=== PATIENT | female | born 2000 | race Caucasian/White ===

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

== ENCOUNTER 2020-04-19 21:34 | Emergency (ER) | payer OTHER ==
[2020-04-19 21:39] VITALS: BP 111/72; PULSE 94; RESP 20; TEMP 98.8
--- NOTE | 2020-04-19 21:47 | ED ---
General Adult HPI - General Chief complaint: Fever Stated complaint: fever Time Seen by Provider: 04/19/20 21:41 Source: patient Mode of arrival: ambulatory Limitations: no limitations - History of Present Illness Initial comments: Dictation was produced using [employer] dictation software. please excuse any grammatical, word or spelling errors. This patient was cared for during a federal and state declared state of emergency secondary to Covid 19 Chief Complaint: 20-year-old female presents to the emergency department for a work note. History of Present Illness: 20-year-old female she missed work today because she was feeling ill. She went to the [employer] wrist they checked her temperature using infrared monitor and was found to be slightly elevated. She was told to come to the emergency department. Patient feels well. Earlier today she had a headache. She was not able to return back to work, she had a work note. Patient otherwise has no complaints. The ROS documented in this emergency department record has been reviewed and confirmed by me. Those systems with pertinent positive or negative responses have been documented in the HPI. All other systems are other negative and/or noncontributory. PHYSICAL EXAM: General Impression: Alert and oriented x3, not in acute distress HEENT: Normocephalic atraumatic, extra-ocular movements intact, pupils equal and reactive to light bilaterally, mucous membranes moist. Cardiovascular: Heart regular rate and rhythm Chest: Able to complete full sentences, no retractions, no tachypnea Abdomen: abdomen soft, non-tender, non-distended, no organomegaly Musculoskeletal: Pulses present and equal in all extremities, no peripheral edema Motor: no focal deficits noted Neurological: CN II-XII grossly intact, no focal motor or sensory deficits noted Skin: Intact with no visualized rashes Psych: Normal affect and mood ED course: 20-year-old female presents work note. She was at the [employer] rest and was told that she should come to the emergency department for low-grade temperatures. On arrival are within acceptable limits. Temperature today is 98.8. She has no complaints per she is well-appearing at bedside. Patient agreed to be tested for coronavirus. She is told that her results should be available in 1-2 days. Patient clear for discharge. She has no restrictions. She is urged to continue wearing her mask and to isolate if she develops worsening symptoms. - Related Data Previous Rx's Medication Instructions Recorded Cephalexin [Keflex] 500 mg PO Q6HR #28 cap 08/23/19 Clotrimazole/Betamethasone Dip 1 applic TOPICAL BID #45 gm 08/23/19 [Lotrisone Cream] Allergies Allergy/AdvReac Type Severity Reaction Status Date / Time No Known Allergies Allergy Verified 04/19/20 21:39 Review of Systems ROS Statement: Those systems with pertinent positive or pertinent negative responses have been documented in the HPI. ROS Other: All systems not noted in ROS Statement are negative. Past Medical History Past Medical History: No Reported History History of Any Multi-Drug Resistant Organisms: None Reported Past Surgical History: No Surgical Hx Reported Past Psychological History: ADD/ADHD, Anxiety Smoking Status: Current every day smoker, Vaper Past Alcohol Use History: None Reported Past Drug Use History: None Reported General Exam Limitations: no limitations Course Vital Signs 04/19/20 21:36 Temperature 98.8 F Pulse Rate 94 Respiratory 20 Rate Blood Pressure 111/72 O2 Sat by Pulse 99 Oximetry Disposition Clinical Impression: Wellness examination Disposition: HOME SELF-CARE Condition: Good Instructions (If sedation given, give patient instructions): Fever in Adults (ED) Is patient prescribed a controlled substance at d/c from ED?: No Referrals: None,Stated [Primary Care Provider] - 1-2 days Time of Disposition: 21:47
== END 2020-04-19 22:03 | disposition home or self-care (01) ==
LOC: EC 21:34
DX: Z00.00 Encounter for general adult medical examination without abnormal findings (principal); F17.290 Nicotine dependence, other tobacco product, uncomplicated; Z20.828 Contact with and (suspected) exposure to other viral communicable diseases
CPT/HCPCS: 99283; U0003

== ENCOUNTER 2020-05-21 10:34 | Emergency (ER) | payer OTHER ==
[2020-05-21 10:46] VITALS: BP 107/64; PULSE 81; RESP 18; TEMP 98
--- NOTE | 2020-05-21 10:54 | ED ---
ENT HPI - General Chief complaint: ENT Stated complaint: Sore Throat,ear pain Time Seen by Provider: 05/21/20 10:47 Source: patient, RN notes reviewed Mode of arrival: ambulatory Limitations: no limitations - History of Present Illness Initial comments: This a 20-year-old female presents emergency Department with chief complaint of sore throat, left ear pain. Patient states started last 24 hours no fevers or chills no nasal congestion no chest pain or shortness breath no headache or dizziness. Patient states that she feels her tonsils swollen. Patient denies any sick contacts. Patient offers no other associated complaints. - Related Data Previous Rx's Medication Instructions Recorded Cephalexin [Keflex] 500 mg PO Q6HR #28 cap 08/23/19 Clotrimazole/Betamethasone Dip 1 applic TOPICAL BID #45 gm 08/23/19 [Lotrisone Cream] Amoxicillin 875 mg PO Q12HR #20 tablet 05/21/20 Allergies Allergy/AdvReac Type Severity Reaction Status Date / Time No Known Allergies Allergy Verified 05/21/20 10:46 Review of Systems ROS Statement: Those systems with pertinent positive or pertinent negative responses have been documented in the HPI. ROS Other: All systems not noted in ROS Statement are negative. Past Medical History Past Medical History: No Reported History History of Any Multi-Drug Resistant Organisms: None Reported Past Surgical History: No Surgical Hx Reported Past Psychological History: ADD/ADHD, Anxiety Smoking Status: Current every day smoker, Vaper Past Alcohol Use History: None Reported Past Drug Use History: None Reported General Exam Limitations: no limitations General appearance: alert, in no apparent distress Head exam: Present: atraumatic, normocephalic, normal inspection Eye exam: Present: normal appearance, PERRL, EOMI. Absent: scleral icterus, conjunctival injection, periorbital swelling ENT exam: Present: mucous membranes moist. Absent: normal oropharynx (Erythematous left tonsil gallstones no exudates, swelling swallowing secretions well), TM's normal bilaterally (Mild erythema left) Neck exam: Present: normal inspection, full ROM, lymphadenopathy. Absent: tenderness, meningismus Respiratory exam: Present: normal lung sounds bilaterally. Absent: respiratory distress, wheezes, rales, rhonchi, stridor Cardiovascular Exam: Present: regular rate, normal rhythm, normal heart sounds. Absent: systolic murmur, diastolic murmur, rubs, gallop, clicks Neurological exam: Present: alert, oriented X3 Skin exam: Present: warm, dry, intact, normal color. Absent: rash Course Vital Signs 05/21/20 10:43 Temperature 98 F Pulse Rate 81 Respiratory 18 Rate Blood Pressure 107/64 O2 Sat by Pulse 97 Oximetry Medical Decision Making - Medical Decision Making Patient has a dentist left tonsil concerning for acute tonsillitis and mild erythema left TM will be treated with amoxicillin return parameters were discussed. Disposition Clinical Impression: Tonsillitis, Acute pharyngitis, Otalgia of left ear Disposition: HOME SELF-CARE Condition: Stable Instructions (If sedation given, give patient instructions): Earache (ED) Additional Instructions: Please return to the Emergency Department if symptoms worsen or any other concerns. Prescriptions: Amoxicillin 875 mg PO Q12HR #20 tablet Is patient prescribed a controlled substance at d/c from ED?: No Referrals: None,Stated [Primary Care Provider] - 1-2 days Time of Disposition: 10:54
== END 2020-05-21 11:14 | disposition home or self-care (01) ==
LOC: EC 10:34
DX: J03.90 Acute tonsillitis, unspecified (principal); H92.02 Otalgia, left ear; F17.200 Nicotine dependence, unspecified, uncomplicated
CPT/HCPCS: 99282

== ENCOUNTER 2020-06-06 19:49 | Emergency (ER) | payer OTHER ==
[2020-06-06 19:56] VITALS: BP 124/76; PULSE 85; RESP 18; TEMP 98.5
--- NOTE | 2020-06-06 20:18 | ED ---
General Adult HPI - General Chief complaint: ENT Stated complaint: Revisit - Throat Time Seen by Provider: 06/06/20 20:02 Source: patient, RN notes reviewed Mode of arrival: ambulatory Limitations: no limitations - History of Present Illness Initial comments: 20-year-old female presents to the emergency room for a chief complaint of sore throat. Patient states that over a week ago started and she was given antibiotics. States she took 2 days of antibiotics and symptoms resolved. However now patient is stating that today she started to have some irritation on the left side again. Patient states she did start retaking the antibiotics as she does have 8 days left. She denies fevers or chills. Denies trismus. Denies difficulty swallowing. Denies neck stiffness. Denies fevers. Denies cough or congestion.Patient has no other complaints at this time including shortness of breath, chest pain, abdominal pain, nausea or vomiting, headache, o r visual changes. - Related Data Previous Rx's Medication Instructions Recorded Cephalexin [Keflex] 500 mg PO Q6HR #28 cap 08/23/19 Clotrimazole/Betamethasone Dip 1 applic TOPICAL BID #45 gm 08/23/19 [Lotrisone Cream] Amoxicillin 875 mg PO Q12HR #20 tablet 05/21/20 Fluticasone Nasal [place] [Flonase 1 spray EA NOSTRIL DAILY 7 Days #1 06/06/20 Nasal [place]] bottle Loratadine [Claritin] 10 mg PO DAILY #20 tab 06/06/20 Allergies Allergy/AdvReac Type Severity Reaction Status Date / Time No Known Allergies Allergy Verified 06/06/20 19:55 Review of Systems ROS Statement: Those systems with pertinent positive or pertinent negative responses have been documented in the HPI. ROS Other: All systems not noted in ROS Statement are negative. Past Medical History Past Medical History: No Reported History History of Any Multi-Drug Resistant Organisms: None Reported Past Surgical History: No Surgical Hx Reported Past Psychological History: ADD/ADHD, Anxiety, PTSD Smoking Status: Current every day smoker, Vaper Past Alcohol Use History: None Reported Past Drug Use History: None Reported General Exam Limitations: no limitations General appearance: alert, in no apparent distress Head exam: Present: atraumatic, normocephalic, normal inspection Eye exam: Present: normal appearance, PERRL, EOMI. Absent: scleral icterus, conjunctival injection, periorbital swelling ENT exam: Present: normal exam, normal oropharynx (No tonsillar exudates noted bilaterally, uvula is midline, tonsillar pillars are symmetric.), mucous membranes moist, TM's normal bilaterally, normal external ear exam Neck exam: Present: normal inspection, full ROM. Absent: tenderness, meningismus, lymphadenopathy Respiratory exam: Present: normal lung sounds bilaterally. Absent: respiratory distress, wheezes, rales, rhonchi, stridor Cardiovascular Exam: Present: regular rate, normal rhythm, normal heart sounds. Absent: systolic murmur, diastolic murmur, rubs, gallop, clicks GI/Abdominal exam: Present: soft, normal bowel sounds. Absent: distended, tenderness, guarding, rebound, rigid Course Vital Signs 06/06/20 19:53 Temperature 98.5 F Pulse Rate 85 Respiratory 18 Rate Blood Pressure 124/76 O2 Sat by Pulse 99 Oximetry Medical Decision Making - Medical Decision Making I did recommend swabbing patient's throat to evaluate for strep and send cultures to the lab. However patient states she does not want this done. She does not feel like waiting. She prefers to go home and restart her antibiotics which she has an 8 day supply of. I did also prescribe Claritin and Flonase as I suspect this more likely to be related to postnasal drip. At this time patient will be discharged home to follow up with primary care. Vitals are stable. Patient requesting work note. Disposition Clinical Impression: Pharyngitis Disposition: HOME SELF-CARE Condition: Good Instructions (If sedation given, give patient instructions): Ear Foreign Body (ED) Additional Instructions: Continue to take her antibiotic as directed. Try Claritin and nasal spray as well. Follow up with your doctor in one to 2 days. Return to the emergency room for any worsening symptoms. Prescriptions: Loratadine [Claritin] 10 mg PO DAILY #20 tab Fluticasone Nasal [place] [Flonase Nasal [place]] 1 spray EA NOSTRIL DAILY 7 Days #1 bottle Is patient prescribed a controlled substance at d/c from ED?: No Referrals: Cielo Moore MD [REFERRING] - 1-2 days Time of Disposition: 20:18
== END 2020-06-06 20:37 | disposition home or self-care (01) ==
LOC: EC 19:49
DX: J02.9 Acute pharyngitis, unspecified (principal); F17.200 Nicotine dependence, unspecified, uncomplicated
CPT/HCPCS: 99282

== ENCOUNTER → 2020-10-08 | Outpatient (CLI) | payer OTHER ==
--- NOTE | 2020-10-08 15:21 | XR ---
EXAMINATION TYPE: XR KUB DATE OF EXAM: 10/08/2020 COMPARISON: None HISTORY: Abdomen pain TECHNIQUE: Abdomen is examined in the supine view. FINDINGS: Normal colonic bowel gas is present. Psoas margins are normal. Organomegaly is not evident. IMPRESSION: 1. Unremarkable abdomen
== END | disposition home or self-care (01) ==
LOC: RADXRMAIN 13:41
PROVIDERS: ATTEND Internal Medicine
DX: R10.84 Generalized abdominal pain (principal)
CPT/HCPCS: 74018

== ENCOUNTER 2024-06-20 06:57 | Emergency (ER) | payer OTHER ==
--- NOTE | 2024-06-20 07:25 | ED ---
ENT HPI - General Chief complaint: Dental/Oral Stated complaint: Tooth pain Time Seen by Provider: 06/20/24 07:09 Source: patient, RN notes reviewed Mode of arrival: ambulatory Limitations: no limitations - History of Present Illness Initial comments: This is a 24-year-old female who presents to the emergency department for dental pain. Reports pain associated with her wisdom teeth over the last week. This is associated with the wisdom teeth in the left upper jaw. Yesterday the pain became particularly bothersome. She is taking Tylenol without any relief. Denies any fevers or chills. She has noticed intermittent swelling over this area. States that she was supposed to have her wisdom teeth removed in 2021, but this ended up getting canceled and she has been struggling to find someone to take her insurance. MD complaint: tooth pain - Related Data Previous Rx's Medication Instructions Recorded Cephalexin [Keflex] 500 mg PO Q6HR #28 cap 08/23/19 Clotrimazole/Betamethasone Dip 1 applic TOPICAL BID #45 gm 08/23/19 [Lotrisone Cream] Amoxicillin 875 mg PO Q12HR #20 tablet 05/21/20 Fluticasone Nasal [place] [Flonase 1 spray EA NOSTRIL DAILY 7 Days #1 06/06/20 Nasal [place]] bottle Loratadine [Claritin] 10 mg PO DAILY #20 tab 06/06/20 Amoxic-Pot Clav 875-125Mg 1 tab PO Q12HR 10 Days #20 tab 06/20/24 [Augmentin 875-125] Ibuprofen [Motrin] 800 mg PO Q8H PRN #30 tab 06/20/24 Allergies Allergy/AdvReac Type Severity Reaction Status Date / Time No Known Allergies Allergy Verified 06/20/24 07:06 Review of Systems ROS Statement: Those systems with pertinent positive or pertinent negative responses have been documented in the HPI. ROS Other: All systems not noted in ROS Statement are negative. Past Medical History Past Medical History: No Reported History History of Any Multi-Drug Resistant Organisms: None Reported Past Surgical History: No Surgical Hx Reported Past Psychological History: ADD/ADHD, Anxiety, PTSD Smoking Status: Current every day smoker, Vaper Past Alcohol Use History: None Reported Past Drug Use History: Marijuana General Exam Limitations: no limitations General appearance: alert, in no apparent distress Head exam: Present: atraumatic, normocephalic, normal inspection ENT exam: Present: other (Mild fullness to the left side of her face with tenderness along the left upper jawline towards the wisdom teeth. Dental caries. No elevation of the tongue or swelling to the floor of the mouth.) Respiratory exam: Present: normal lung sounds bilaterally. Absent: respiratory distress, wheezes, rales, rhonchi, stridor Cardiovascular Exam: Present: regular rate, normal rhythm, normal heart sounds. Absent: systolic murmur, diastolic murmur, rubs, gallop, clicks Neurological exam: Present: alert, oriented X3, CN II-XII intact Psychiatric exam: Present: normal affect, normal mood Skin exam: Present: warm, dry, intact, normal color. Absent: rash Course Vital Signs 06/20/24 07:07 Temperature 98.1 F Pulse Rate 86 Respiratory 15 Rate Blood Pressure 107/72 O2 Sat by Pulse 99 Oximetry Medical Decision Making - Medical Decision Making This is a 24-year-old female who presents to the emergency department for dental pain. Was pt. sent in by a medical professional or institution? @ -No Did you speak to anyone other than the patient for history? @ -No Did you review nursing and triage notes? @ -Yes, and I agree, it is accurate with regards to the patient's symptoms. Were old charts reviewed? @ -No Differential Diagnosis? @ -Differential Dental Pain: Dental abscess, chipped tooth, dental carries, marie's angina, trigeminal neuralgia, this is not meant to be an all-inclusive list. EKG interpreted by me (3pts min.)? @ -Not obtained X-rays interpreted by me (1pt min.)? @ -Not obtained CT interpreted by me (1pt min.)? @ -Not obtained U/S interpreted by me (1pt. min.)? @ -Not obtained What testing was considered but not performed? (CT, X-rays, U/S, labs)? Why? @ -None What meds were considered but not given? Why? @ -None Did you discuss the management of the patient with other professionals? @ -No Did you reconcile home meds? @ -No Was smoking cessation discussed for >3mins.? @ -I discussed smoking cessation for greater than 3 minutes. The risk of smoking were discussed with the patient including but not limited to risks of cancer, stroke, coronary artery disease and COPD. Also discussed with patient were multiple methods of quitting smoking. Lastly we discussed the financial cost of smoking. Was critical care preformed (if so, how long)? @ -No Were there social determinants of health that impacted care today? How? (Homelessness, low income, unemployed, alcoholism, drug addiction, transportation, low edu. Level, literacy, decrease access to med. care, snf, rehab)? @ -No Was there de-escalation of care discussed even if they declined? (Discuss DNR or withdrawal of care, Hospice)? @ -No What co-morbidities impacted this encounter? (DM, HTN, Smoking, COPD, CAD, Cancer, CVA, Hep., AIDS, mental health diagnosis, sleep apnea, morbid obesity)? @ -Smoking Was patient admitted / discharged? @ -Discharged. Physical examination consistent with developing dental abscess. Pain was managed in the emergency department. Prescription for Augmentin and ibuprofen provided. Advised taking this with Tylenol and using [id number] anesthetics such as Orajel. She was given a list of dental providers who accept her insurance as well. Advised she contact them for definitive management. Patient discharged home in stable condition. Case discussed with ED attending Dr. Hamm. Return precautions reviewed in depth, the patient is instructed to return to the emergency department with any new, worsening, or concerning symptoms. Patient verbalized understanding. Undiagnosed new problem with uncertain prognosis? @ -None Drug Therapy requiring intensive monitoring for toxicity (Heparin, Nitro, Insulin, Cardizem)? @ -None Were any procedures done? @ -None Diagnosis/symptom? @ -Dental infection Acute, or Chronic, or Acute on Chronic? @ -Acute Uncomplicated (without systemic symptoms) or Complicated (systemic symptoms)? @ -Uncomplicated Side effects of treatment? @ -None Exacerbation, Progression, or Severe Exacerbation] @ -Not applicable Poses a threat to life or bodily function? @ -No Disposition Clinical Impression: Dental infection, Nicotine dependence Disposition: HOME SELF-CARE Instructions (If sedation given, give patient instructions): Dental Abscess (ED), Toothache (ED) Additional Instructions: Return to the emergency department with any new, worsening, or concerning symptoms. Take the antibiotic as prescribed for 10 days. Alternate with ibuprofen and Tylenol as needed for pain relief. You can also use [id number] Orajel or other topical anesthetics. Follow-up with a dentist for definitive management. Prescriptions: Amoxic-Pot Clav 875-125Mg [Augmentin 875-125] 1 tab PO Q12HR 10 Days #20 tab Ibuprofen [Motrin] 800 mg PO Q8H PRN #30 tab PRN Reason: Pain Is patient prescribed a controlled substance at d/c from ED?: No Referrals: Jimmy Almonte MD [Primary Care Provider] - 1-2 days Time of Disposition: 07:28
[2024-06-20] MEDS: HYDROcodone/APAP 7.5-325MG 1 EACH TAB PO ONE (07:36)
[2024-06-20] MEDS: DEXAMETHASONE SOD PHOSPHATE 10 MG/ML 1 ML VIAL IM STA (07:37)
[2024-06-20] MEDS: ACET/COD 300 MG/30 MG STARTER PACK 6 TAB BTL PO STA (07:37)
[2024-06-20] MEDS: KETOROLAC 15 MG/ML 1 ML VIAL IM STA (07:37)
[2024-06-20 07:49] VITALS: BP 110/81; PULSE 82; RESP 16; TEMP 98
== END 2024-06-20 08:18 | disposition home or self-care (01) ==
LOC: EC 06:57
CPT/HCPCS: 96372; 99283

== ENCOUNTER 2024-08-08 23:55 | Emergency (ER) | payer OTHER ==
[2024-08-08 23:59] VITALS: RESP 18
--- NOTE | 2024-08-09 00:36 | ED ---
ENT HPI - General Chief complaint: Dental/Oral Stated complaint: Mouth Pain Time Seen by Provider: 08/09/24 00:02 Source: patient Mode of arrival: ambulatory - History of Present Illness Initial comments: 24-year-old female presenting with chief complaint of dental pain. Patient states that the dental pain is ongoing for the last 3 days. She was taking Motrin and Tylenol which was helping the pain but now tonight after taking her Motrin and Tylenol this has not alleviated her pain and she is unable to fall asleep. No swelling. Patient did have an appointment to have her wisdom teeth removed today which got canceled. She is aware that she needs a root canal as well. No fevers. No difficulty breathing or swallowing. No trismus. No fevers. States that pain is shooting from her tooth and into her ear throat and head. - Related Data Previous Rx's Medication Instructions Recorded Cephalexin [Keflex] 500 mg PO Q6HR #28 cap 08/23/19 Clotrimazole/Betamethasone Dip 1 applic TOPICAL BID #45 gm 08/23/19 [Lotrisone Cream] Amoxicillin 875 mg PO Q12HR #20 tablet 05/21/20 Fluticasone Nasal [place] [Flonase 1 spray EA NOSTRIL DAILY 7 Days #1 06/06/20 Nasal [place]] bottle Loratadine [Claritin] 10 mg PO DAILY #20 tab 06/06/20 Amoxic-Pot Clav 875-125Mg 1 tab PO Q12HR 10 Days #20 tab 06/20/24 [Augmentin 875-125] Ibuprofen [Motrin] 800 mg PO Q8H PRN #30 tab 06/20/24 Amoxic-Pot Clav 875-125Mg 1 tab PO Q12HR 7 Days #14 tab 08/09/24 [Augmentin 875-125] Allergies Allergy/AdvReac Type Severity Reaction Status Date / Time No Known Allergies Allergy Verified 08/08/24 23:59 Review of Systems ROS Statement: Those systems with pertinent positive or pertinent negative responses have been documented in the HPI. ROS Other: All systems not noted in ROS Statement are negative. Past Medical History Past Medical History: No Reported History History of Any Multi-Drug Resistant Organisms: None Reported Past Surgical History: No Surgical Hx Reported Past Psychological History: ADD/ADHD, Anxiety, PTSD Smoking Status: Current every day smoker, Vaper Past Alcohol Use History: Occasional Past Drug Use History: Marijuana General Exam General appearance: alert, in no apparent distress Head exam: Present: atraumatic, normocephalic Eye exam: Present: normal appearance Expanded Mouth exam: Present: normal external inspection, tongue normal. Absent: drooling, trismus, muffled voice Teeth exam: Present: dental caries, dental tenderness # Throat exam: normal inspection Neck exam: Present: normal inspection. Absent: meningismus Respiratory exam: Absent: respiratory distress Cardiovascular Exam: Present: regular rate Neurological exam: Present: alert, oriented X3 Psychiatric exam: Present: normal affect, normal mood Skin exam: Present: warm, dry Course Vital Signs 08/08/24 23:57 Temperature 97.7 F Pulse Rate 68 Respiratory 18 Rate Blood Pressure 120/83 O2 Sat by Pulse 100 Oximetry Medical Decision Making - Medical Decision Making Was pt. sent in by a medical professional or institution (, PA, BIOMEDICAL ANALYTICAL SCIENTIST, urgent care, hospital, or longterm...) When possible be specific @ -No Did you speak to anyone other than the patient for history (EMS, parent, family, police, friend...)? What history was obtained from this source @ -No Did you review nursing and triage notes (agree or disagree)? Why? @ -I reviewed and agree with nursing and triage notes Were old charts reviewed (outside hosp., previous admission, EMS record, old EKG, old radiological studies, urgent care reports/EKG's, longterm records)? Report findings @ -No old charts were reviewed Differential Diagnosis (chest pain, altered mental status, abdominal pain women, abdominal pain men, vaginal bleeding, weakness, fever, dyspnea, syncope, headache, dizziness, GI bleed, back pain, seizure, CVA, palpatations, mental health, musculoskeletal)? @ -Differential includes toothache, dental abscess, Charles's angina, this is not an all-inclusive list EKG interpreted by me (3pts min.). @ -As above X-rays interpreted by me (1pt min.). @ -None done CT interpreted by me (1pt min.). @ -None done U/S interpreted by me (1pt. min.). @ -None done What testing was considered but not performed or refused? (CT, X-rays, U/S, labs)? Why? @ -None What meds were considered but not given or refused? Why? @ -None Did you discuss the management of the patient with other professionals (denisha brown i.e. , PA, BIOMEDICAL ANALYTICAL SCIENTIST, lab, RT, psych nurse, social work msw, standpipe tender, teacher, senior commercial loan officer, pillowcase cutter)? Give summary @ -No Was smoking cessation discussed for >3mins.? @ -No Was critical care preformed (if so, how long)? @ -No Were there social determinants of health that impacted care today? How? (Homelessness, low income, unemployed, alcoholism, drug addiction, transportation, low edu. Level, literacy, decrease access to med. care, group home, rehab)? @ -No Was there de-escalation of care discussed even if they declined (Discuss DNR or withdrawal of care, Hospice)? DNR status @ -No What co-morbidities impacted this encounter? (DM, HTN, Smoking, COPD, CAD, Cancer, CVA, ARF, Chemo, Hep., AIDS, mental health diagnosis, sleep apnea, morbid obesity)? @ -None Was patient admitted / discharged? Hospital course, mention meds given and route, prescriptions, significant lab abnormalities, going to OR and other pertinent info. @ -24-year-old female presenting with chief complaint of dental pain. She has known dental caries. She was also supposed to have her wisdom teeth removed earlier today but the appointment was canceled by the office. On exam there are multiple dental caries and dental tenderness is noted. Patient will be treated with pain medication and antibiotics. Follow-up with dentist. Follow-up with PCP. Report back to ER with any new or worsening symptoms. Discussed return parameters and answered all questions. Patient conveyed verbal understanding and agreed to the plan. I discussed this case in detail with my attending Dr. Cali Undiagnosed new problem with uncertain prognosis? @ -No Drug Therapy requiring intensive monitoring for toxicity (Heparin, Nitro, Insulin, Cardizem)? @ -No Were any procedures done? @ -No Diagnosis/symptom? @ -Toothache Acute, or Chronic, or Acute on Chronic? @ -Acute Uncomplicated (without systemic symptoms) or Complicated (systemic symptoms)? @ -Uncomplicated Side effects of treatment? @ -No Exacerbation, Progression, or Severe Exacerbation? @ -No Poses a threat to life or bodily function? How? (Chest pain, [place], [place], pneumonia, PE, COPD, DKA, ARF, appy, cholecystitis, CVA, Diverticulitis, Homicidal, Luna icidal, threat to staff... and all critical care pts) @ -No Disposition Clinical Impression: Toothache Disposition: HOME SELF-CARE Condition: Good Instructions (If sedation given, give patient instructions): Toothache (ED) Additional Instructions: Please follow [facility] with [facility] [place] [address]. Phone number for new patients or [phone] for existing patients. Prescriptions: Amoxic-Pot Clav 875-125Mg [Augmentin 875-125] 1 tab PO Q12HR 7 Days #14 tab Is patient prescribed a controlled substance at d/c from ED?: No Referrals: Jimmy Almonte MD [Primary Care Provider] - 1-2 days Time of Disposition: 00:38
[2024-08-09] MEDS: HYDROcodone/APAP 7.5-325MG 1 EACH TAB PO ONE (01:00)
[2024-08-09] MEDS: traMADol 50 MG STARTER PACK 3 TAB BTL PO STA (01:00)
[2024-08-09] MEDS: KETOROLAC 15 MG/ML 1 ML VIAL IM STA (01:01)
[2024-08-09 01:11] VITALS: BP 116/78; PULSE 71; TEMP 97.8
== END 2024-08-09 01:10 | disposition home or self-care (01) ==
LOC: EC 23:55
DX: K02.9 Dental caries, unspecified (principal); F17.290 Nicotine dependence, other tobacco product, uncomplicated
CPT/HCPCS: 99283; 96372; J1885

== ENCOUNTER 2024-08-11 00:42 | Emergency (ER) | payer OTHER ==
[2024-08-11 00:46] VITALS: RESP 18
--- NOTE | 2024-08-11 01:08 | ED ---
ENT HPI - General Chief complaint: Dental/Oral Stated complaint: Dental pain Time Seen by Provider: 08/11/24 01:06 Source: patient, RN notes reviewed Mode of arrival: ambulatory Limitations: no limitations - History of Present Illness Initial comments: 24-year-old female presenting to the ER chief complaint of dental pain. Patient states she was scheduled for wisdom teeth extraction and root canal surgery but reports it was canceled due to insurance issues. Patient has been dealing with left lower sided dental pain that radiates to the jaw and the left ear. Denies lip or tongue swelling, trismus, difficulty swallowing or breathing. Patient was seen 3 days ago at the ER for same symptoms and was prescribed an antibiotic but reports she has not picked it up yet. - Related Data Previous Rx's Medication Instructions Recorded Cephalexin [Keflex] 500 mg PO Q6HR #28 cap 08/23/19 Clotrimazole/Betamethasone Dip 1 applic TOPICAL BID #45 gm 08/23/19 [Lotrisone Cream] Amoxicillin 875 mg PO Q12HR #20 tablet 05/21/20 Fluticasone Nasal [place] [Flonase 1 spray EA NOSTRIL DAILY 7 Days #1 06/06/20 Nasal [place]] bottle Loratadine [Claritin] 10 mg PO DAILY #20 tab 06/06/20 Amoxic-Pot Clav 875-125Mg 1 tab PO Q12HR 10 Days #20 tab 06/20/24 [Augmentin 875-125] Ibuprofen [Motrin] 800 mg PO Q8H PRN #30 tab 06/20/24 Amoxic-Pot Clav 875-125Mg 1 tab PO Q12HR 7 Days #14 tab 08/09/24 [Augmentin 875-125] Ketorolac [Toradol] 10 mg PO Q8HR #15 tab 08/11/24 Allergies Allergy/AdvReac Type Severity Reaction Status Date / Time No Known Allergies Allergy Verified 08/11/24 00:46 Review of Systems ROS Statement: Those systems with pertinent positive or pertinent negative responses have been documented in the HPI. ROS Other: All systems not noted in ROS Statement are negative. Past Medical History Past Medical History: No Reported History History of Any Multi-Drug Resistant Organisms: None Reported Past Surgical History: No Surgical Hx Reported Past Psychological History: ADD/ADHD, Anxiety, PTSD Smoking Status: Current every day smoker, Vaper Past Alcohol Use History: Occasional Past Drug Use History: Marijuana General Exam Limitations: no limitations General appearance: alert, in no apparent distress Head exam: Present: atraumatic, normocephalic, normal inspection Eye exam: Present: normal appearance, PERRL, EOMI. Absent: scleral icterus, conjunctival injection, periorbital swelling ENT exam: Present: normal exam, mucous membranes moist, other (Diffuse dental caries throughout oral cavity, no fluctuant masses, erythema, or drainage) Neck exam: Present: normal inspection. Absent: tenderness, meningismus, lymp hadenopathy Neurological exam: Present: alert, oriented X3 Psychiatric exam: Present: normal affect, normal mood Skin exam: Present: warm, dry, intact, normal color. Absent: rash Course Vital Signs 08/11/24 08/11/24 00:45 02:00 Temperature 98.3 F 97.9 F Pulse Rate 76 79 Respiratory 18 18 Rate Blood Pressure 123/81 125/84 O2 Sat by Pulse 99 97 Oximetry Medical Decision Making - Medical Decision Making Was pt. sent in by a medical professional or institution (, PA, CLINICAL NURSE MANAGER, urgent care, hospital, or [place] health care facility...) When possible be specific @ -No Did you speak to anyone other than the patient for history (EMS, parent, family, police, friend...)? What history was obtained from this source @ -No Did you review nursing and triage notes (agree or disagree)? Why? @ -I reviewed and agree with nursing and triage notes Were old charts reviewed (outside hosp., previous admission, EMS record, old EKG, old radiological studies, urgent care reports/EKG's, [place] health [facility] facility records)? Report findings @ -No old charts were reviewed Differential Diagnosis (chest pain, altered mental status, abdominal pain women, abdominal pain men, vaginal bleeding, weakness, fever, dyspnea, syncope, headache, dizziness, GI bleed, back pain, seizure, CVA, palpatations, mental health, musculoskeletal)? @ -Toothache, dental abscess, Charles's angina, dental infection, dental caries EKG interpreted by me (3pts min.). @ -None X-rays interpreted by me (1pt min.). @ -None done CT interpreted by me (1pt min.). @ -None done U/S interpreted by me (1pt. min.). @ -None done What testing was considered but not performed or refused? (CT, X-rays, U/S, labs)? Why? @ -None What meds were considered but not given or refused? Why? @ -None Did you discuss the management of the patient with other professionals (professionals i.e. , PA, CLINICAL NURSE MANAGER, lab, RT, psych nurse, geriatric social worker, corporation lawyer, teacher, customs and immigration officer, family caseworker)? Give summary @ -No Was smoking cessation discussed for >3mins.? @ -No Was critical care preformed (if so, how long)? @ -No Were there social determinants of health that impacted care today? How? (Homelessness, low income, unemployed, alcoholism, drug addiction, transportation, low edu. Level, literacy, decrease access to med. care, [facility], rehab)? @ -No Was there de-escalation of care discussed even if they declined (Discuss DNR or withdrawal of care, Hospice)? DNR status @ -No What co-morbidities impacted this encounter? (DM, HTN, Smoking, COPD, CAD, Cancer, CVA, ARF, Chemo, Hep., AIDS, mental health diagnosis, sleep apnea, morbid obesity)? @ -None Was patient admitted / discharged? Hospital course, mention meds given and route, prescriptions, significant lab abnormalities, going to OR and other pertinent info. @ -Discharge. This is a 24-year-old female presented to the ER chief complaint of dental pain. Patient was seen for this 3 days ago in the ER where she was prescribed Augmentin however has not yet picked up prescription. No red flag symptoms such as lip swelling, tongue swelling, or difficulty breathing or swallowing. Vital signs within acceptable limits. Upon examination, there is diffuse dental caries with no fluctuant masses or sign of abscess. Patient was provided with analgesics. Discussed that patient must pickling operator prescription for Augmentin and follow-up with dentist. Return precautions discussed as well as supportive care. Patient conveys understanding and is agreeable to plan. Case was discussed with the ED attending Dr. Tabor. Patient discharged in stable condition. Undiagnosed new problem with uncertain prognosis? @ -No Drug Therapy requiring intensive monitoring for toxicity (Heparin, Nitro, Insulin, Cardizem)? @ -No Were any procedures done? @ -No Diagnosis/symptom? @ -Dental infection Acute, or Chronic, or Acute on Chronic? @ -Acute Uncomplicated (without systemic symptoms) or Complicated (systemic symptoms)? @ -Uncomplicated Side effects of treatment? @ -No Exacerbation, Progression, or Severe Exacerbation? @ -No Poses a threat to life or bodily function? How? (Chest pain, [place], [place], pneumonia, PE, COPD, DKA, ARF, appy, cholecystitis, CVA, Diverticulitis, Homicidal, Suicidal, threat to staff... and all critical care pts) @ -No Disposition Clinical Impression: Dental infection Disposition: HOME SELF-CARE Condition: Stable Instructions (If sedation given, give patient instructions): Toothache (ED) Additional Instructions: Please take Augmentin as prescribed. Take Toradol every 8 hours as needed for pain. Apply cold compresses to left side of face. Drink plenty of ice water to reduce pain and swelling. Follow-up with dentist as soon as possible. Please return to the Emergency Department if symptoms worsen or any other concerns. Prescriptions: Ketorolac [Toradol] 10 mg PO Q8HR #15 tab Is patient prescribed a controlled substance at d/c from ED?: No Referrals: Jimmy Almonte MD [Primary Care Provider] - 1-2 days Time of Disposition: 01:41
[2024-08-11] MEDS: KETOROLAC 15 MG/ML 1 ML VIAL IM STA (01:23)
[2024-08-11 02:11] VITALS: BP 125/84; PULSE 79; TEMP 97.9
== END 2024-08-11 02:00 | disposition home or self-care (01) ==
LOC: EC 00:42
DX: K04.7 Periapical abscess without sinus (principal); F17.200 Nicotine dependence, unspecified, uncomplicated
CPT/HCPCS: 99282; 96372; J1885

== ENCOUNTER 2024-09-01 00:34 | Emergency (ER) | payer OTHER ==
[2024-09-01 00:39] VITALS: RESP 18; TEMP 97.4
--- NOTE | 2024-09-01 01:45 | ED ---
ENT HPI - General Chief complaint: Dental/Oral Stated complaint: Dental pain Time Seen by Provider: 09/01/24 00:53 Source: patient Mode of arrival: ambulatory - History of Present Illness Initial comments: 24-year-old female presenting with chief complaint of dental pain. Patient is having pain to the right upper incisor. Patient has been seen here on multiple occasions recently for dental pain. States that she has had difficulty getting in with her dentist due to her insurance. She is having no swelling. She was taking old antibiotics and Tylenol 3 at home which did not help. No difficulty breathing or swallowing. No fevers or chills. - Related Data Previous Rx's Medication Instructions Recorded Cephalexin [Keflex] 500 mg PO Q6HR #28 cap 08/23/19 Clotrimazole/Betamethasone Dip 1 applic TOPICAL BID #45 gm 08/23/19 [Lotrisone Cream] Amoxicillin 875 mg PO Q12HR #20 tablet 05/21/20 Fluticasone Nasal [place] [Flonase 1 spray EA NOSTRIL DAILY 7 Days #1 06/06/20 Nasal [place]] bottle Loratadine [Claritin] 10 mg PO DAILY #20 tab 06/06/20 Amoxic-Pot Clav 875-125Mg 1 tab PO Q12HR 10 Days #20 tab 06/20/24 [Augmentin 875-125] Ibuprofen [Motrin] 800 mg PO Q8H PRN #30 tab 06/20/24 Amoxic-Pot Clav 875-125Mg 1 tab PO Q12HR 7 Days #14 tab 08/09/24 [Augmentin 875-125] Ketorolac [Toradol] 10 mg PO Q8HR #15 tab 08/11/24 Allergies Allergy/AdvReac Type Severity Reaction Status Date / Time No Known Allergies Allergy Verified 09/01/24 00:39 Review of Systems ROS Statement: Those systems with pertinent positive or pertinent negative responses have been documented in the HPI. ROS Other: All systems not noted in ROS Statement are negative. Past Medical History Past Medical History: No Reported History History of Any Multi-Drug Resistant Organisms: None Reported Past Surgical History: No Surgical Hx Reported Past Psychological History: ADD/ADHD, Anxiety, PTSD Smoking Status: Current every day smoker, Vaper Past Alcohol Use History: Occasional Past Drug Use History: Marijuana General Exam General appearance: alert, in no apparent distress Head exam: Present: atraumatic, normocephalic Eye exam: Present: normal appearance, EOMI Expanded Mouth exam: Present: normal external inspection, tongue normal. Absent: drooling, trismus, muffled voice Teeth exam: Present: dental caries, dental tenderness # Throat exam: normal inspection Neck exam: Present: normal inspection. Absent: meningismus Respiratory exam: Absent: respiratory distress Cardiovascular Exam: Present: regular rate Neurological exam: Present: alert, oriented X3 Psychiatric exam: Present: normal affect, normal mood Skin exam: Present: warm, dry, normal color Course Vital Signs 09/01/24 09/01/24 00:36 02:07 Temperature 97.4 F L Pulse Rate 94 90 Respiratory 18 18 Rate Blood Pressure 125/80 129/80 O2 Sat by Pulse 98 100 Oximetry Medical Decision Making - Medical Decision Making Was pt. sent in by a medical professional or institution (MED Lamb, BEATER WORKER HELPER, urgent care, hospital, or prison...) When possible be specific @ -No Did you speak to anyone other than the patient for history (EMS, parent, family, police, friend...)? What history was obtained from this source @ -No Did you review nursing and triage notes (agree or disagree)? Why? @ -I reviewed and agree with nursing and triage notes Were old charts reviewed (outside hosp., previous admission, EMS record, old E KG, old radiological studies, urgent care reports/EKG's, prison records)? Report findings @ -No old charts were reviewed Differential Diagnosis (chest pain, altered mental status, abdominal pain women, abdominal pain men, vaginal bleeding, weakness, fever, dyspnea, syncope, headache, dizziness, GI bleed, back pain, seizure, CVA, palpatations, mental health, musculoskeletal)? @ -Differential includes toothache, dental abscess, Charles's angina, this is not an all-inclusive list EKG interpreted by me (3pts min.). @ -As above X-rays interpreted by me (1pt min.). @ -None done CT interpreted by me (1pt min.). @ -None done U/S interpreted by me (1pt. min.). @ -None done What testing was considered but not performed or refused? (CT, X-rays, U/S, labs)? Why? @ -None What meds were considered but not given or refused? Why? @ -None Did you discuss the management of the patient with other professionals (professionals i.e. Dr., PA, BEATER WORKER HELPER, lab, RT, psych nurse, social worker delinquency prevention, hotel staff member, te acher, ammunition officer, caser shoe parts)? Give summary @ -No Was smoking cessation discussed for >3mins.? @ -No Was critical care preformed (if so, how long)? @ -No Were there social determinants of health that impacted care today? How? (Homelessness, low income, unemployed, alcoholism, drug addiction, transportation, low edu. Level, literacy, decrease access to med. care, nursing home, rehab)? @ -No Was there de-escalation of care discussed even if they declined (Discuss DNR or withdrawal of care, Hospice)? DNR status @ -No What co-morbidities impacted this encounter? (DM, HTN, Smoking, COPD, CAD, C ancer, CVA, ARF, Chemo, Hep., AIDS, mental health diagnosis, sleep apnea, morbid obesity)? @ -None Was patient admitted / discharged? Hospital course, mention meds given and route, prescriptions, significant lab abnormalities, going to OR and other pertinent info. @ -24-year-old female presenting with chief complaint of dental pain. Patient states that she knows that she needs dental work done but is having issues with her insurance. No red flag symptoms. No evidence of infection. Patient is provided with pain medication and instructed to follow-up with her dentist. I stressed to the patient that we can help manage her symptoms but any real resolution to her recurrent dental pain requires evaluation by her dentist. Discharged. Follow-up with dentist. Report back to ER with any new or worsening symptoms. Discussed return parameters and answered all questions. Patient conveyed verbal understanding and agreed to the plan. I discussed this case in detail with my attending Dr. Manjarrez Undiagnosed new problem with uncertain prognosis? @ -No Drug Therapy requiring intensive monitoring for toxicity (Heparin, Nitro, Insulin, Cardizem)? @ -No Were any procedures done? @ -No Diagnosis/symptom? @ -Dental pain Acute, or Chronic, or Acute on Chronic? @ -Acute Uncomplicated (without systemic symptoms) or Complicated (systemic symptoms)? @ -Uncomplicated Side effects of treatment? @ -No Exacerbation, Progression, or Severe Exacerbation? @ -No Poses a threat to life or bodily function? How? (Chest pain, [place], [place], pneumonia, PE, COPD, DKA, ARF, appy, cholecystitis, CVA, Diverticulitis, Homicidal, Suicidal, threat to staff... and all critical care pts) @ -No Disposition Clinical Impression: Toothache Disposition: HOME SELF-CARE Condition: Good Instructions (If sedation given, give patient instructions): Toothache (ED) Additional Instructions: Follow-up with your dentist. Report back to ER with any new or worsening symptoms Is patient prescribed a controlled substance at d/c from ED?: No Referrals: Jimmy Almonte MD [Primary Care Provider] - 1-2 days Time of Disposition: 01:44
[2024-09-01] MEDS: KETOROLAC 15 MG/ML 1 ML VIAL IM STA (02:02)
[2024-09-01] MEDS: traMADol 50 MG STARTER PACK 3 TAB BTL PO STA (02:04)
[2024-09-01 02:08] VITALS: BP 129/80; PULSE 90
== END 2024-09-01 02:11 | disposition home or self-care (01) ==
LOC: EC 00:34
DX: K08.89 Other specified disorders of teeth and supporting structures (principal); F17.290 Nicotine dependence, other tobacco product, uncomplicated
CPT/HCPCS: 99282; 96372; J1885

== ENCOUNTER 2024-09-20 17:40 | Emergency (ER) | payer OTHER ==
[2024-09-20 19:35] VITALS: BP 108/70; PULSE 98; RESP 18; TEMP 97.9
--- NOTE | 2024-09-20 19:35 | ED ---
General Adult HPI - General Chief complaint: Dental/Oral Stated complaint: oral Time Seen by Provider: 09/20/24 18:17 Source: patient, RN notes reviewed Mode of arrival: ambulatory Limitations: no limitations - History of Present Illness Initial comments: 24-year-old female presents to the emergency department for evaluation of left lower dentition pain. Patient states that she needs to have a root canal done but was unable to do so because of her insurance. She states that she has an appointment at the end of the month for her dentist again. She states that she was eating when she bit down on the left side and started experiencing some pain. She denies any fever, chills, sore throat, trismus. Denies difficulty swallowing. - Related Data Home Medications Medication Instructions Recorded Confirmed Amoxic-Pot Clav 875-125Mg 1 tab PO DAILY 09/20/24 09/20/24 [Augmentin 875-125] Allergies Allergy/AdvReac Type Severity Reaction Status Date / Time No Known Allergies Allergy Verified 09/20/24 17:55 Review of Systems ROS Statement: Those systems with pertinent positive or pertinent negative responses have been documented in the HPI. ROS Other: All systems not noted in ROS Statement are negative. Past Medical History Past Medical History: No Reported History History of Any Multi-Drug Resistant Organisms: None Reported Past Surgical History: No Surgical Hx Reported Past Psychological History: ADD/ADHD, Anxiety, PTSD Smoking Status: Current every day smoker, Vaper Past Alcohol Use History: Occasional Past Drug Use History: Marijuana General Exam Limitations: no limitations General appearance: alert, in no apparent distress Head exam: Present: atraumatic, normocephalic, normal inspection Eye exam: Present: normal appearance, PERRL, EOMI. Absent: scleral icterus, conjunctival injection, periorbital swelling ENT exam: Present: normal exam, normal oropharynx, mucous membranes moist, other (Multiple dental caries throughout upper and lower dentition, no visible drainable dental abscess) Neck exam: Present: normal inspection. Absent: tenderness, meningismus, lymphadenopathy Respiratory exam: Present: normal lung sounds bilaterally. Absent: respiratory distress, wheezes, rales, rhonchi, stridor Cardiovascular Exam: Present: regular rate, normal rhythm, normal heart sounds. Absent: systolic murmur, diastolic murmur, rubs, gallop, clicks Neurological exam: Present: alert, oriented X3 Psychiatric exam: Present: normal affect, normal mood Skin exam: Present: warm, dry, intact, normal color. Absent: rash Course Vital Signs 09/20/24 09/20/24 17:53 19:23 Temperature 97.9 F Pulse Rate 97 98 Respiratory 16 18 Rate Blood Pressure 103/67 108/70 O2 Sat by Pulse 95 98 Oximetry Medical Decision Making - Medical Decision Making Was pt. sent in by a medical professional or institution ([facility], DIRECTOR PROJECT MANAGEMENT, urgent care, hospital, or jail...) When possible be specific @ -No Did you speak to anyone other than the patient for history (EMS, parent, family, police, friend...)? What history was obtained from this source @ -No Did you review nursing and triage notes (agree or disagree)? Why? @ -I reviewed and agree with nursing and triage notes Were old charts reviewed (outside hosp., previous admission, EMS record, old EKG, old radiological studies, urgent care reports/EKG's, jail records)? Report findings @ -No old charts were reviewed Differential Diagnosis (chest pain, altered mental status, abdominal pain women, abdominal pain men, vaginal bleeding, weakness, fever, dyspnea, syncope, headache, dizziness, GI bleed, back pain, seizure, CVA, palpatations, mental health, musculoskeletal)? @ -Dental infection, dental abscess, dental appliance issue, parotiditis, strep throat, this list is not all inclusive EKG interpreted by me (3pts min.). @ -None X-rays interpreted by me (1pt min.). @ -None done CT interpreted by me (1pt min.). @ -None done U/S interpreted by me (1pt. min.). @ -None done What testing was considered but not performed or refused? (CT, X-rays, U/S, labs)? Why? @ -None What meds were considered but not given or refused? Why? @ -None Did you discuss the management of the patient with other professionals (professionals i.e. [facility], DIRECTOR PROJECT MANAGEMENT, lab, RT, psych nurse, licensed clinical social worker, group leader, teacher, national insurance officer, case management director)? Give summary @ -No Was smoking cessation discussed for >3mins.? @ -No Was critical care preformed (if so, how long)? @ -No Were there social determinants of health that impacted care today? How? (Homelessness, low income, unemployed, alcoholism, drug addiction, transportation, low edu. Level, literacy, decrease access to med. care, skilled nursing, rehab)? @ -No Was there de-escalation of care discussed even if they declined (Discuss DNR or withdrawal of care, Hospice)? DNR status @ -No What co-morbidities impacted this encounter? (DM, HTN, Smoking, COPD, CAD, Cancer, CVA, ARF, Chemo, Hep., AIDS, mental health diagnosis, sleep apnea, morbid obesity)? @ -None Was patient admitted / discharged? Hospital course, mention meds given and route, prescriptions, significant lab abnormalities, going to OR and other pertinent info. @ -Discharge. Patient presented to the emergency department for dental pain. There is no visible drainable abscess. Patient provided Toradol and 1 dose of [place] in the emergency department for pain control. Advised her to follow-up with her dentist as she is not having any red flag symptoms at this time. Patient understanding agreeable with plan. Patient stable at time of discharge. Case discussed with Dr. Joel Undiagnosed new problem with uncertain prognosis? @ -No Drug Therapy requiring intensive monitoring for toxicity (Heparin, Nitro, Insulin, Cardizem)? @ -No Were any procedures done? @ -No Diagnosis/symptom? @ -Dental pain Acute, or Chronic, or Acute on Chronic? @ -Acute Uncomplicated (without systemic symptoms) or Complicated (systemic symptoms)? @ -Uncomplicated Side effects of treatment? @ -No Exacerbation, Progression, or Severe Exacerbation? @ -No Poses a threat to life or bodily function? How? (Chest pain, [place], [place], pneumonia, PE, COPD, DKA, ARF, appy, cholecystitis, CVA, Diverticulitis, Homicidal, Suicidal, threat to staff... and all critical care pts) @ -No Disposition Clinical Impression: Toe pain, left Disposition: HOME SELF-CARE Condition: Stable Instructions (If sedation given, give patient instructions): Toothache (ED) Additional Instructions: Please follow up with your dentist as scheduled. Return to the emergency department for new or worsening symptoms. Is patient prescribed a controlled substance at d/c from ED?: No Referrals: Jimmy Almonte MD [Primary Care Provider] - 1-2 days
[2024-09-20] MEDS: HYDROcodone/APAP 5-325MG 1 EACH TAB PO STA (19:43)
[2024-09-20] MEDS: KETOROLAC 15 MG/ML 1 ML VIAL IM STA (19:44)
== END 2024-09-20 19:45 | disposition home or self-care (01) ==
LOC: EC 17:40
DX: K02.9 Dental caries, unspecified (principal); M79.675 Pain in left toe(s); F17.290 Nicotine dependence, other tobacco product, uncomplicated
CPT/HCPCS: 99283; 96372; J1885

== ENCOUNTER 2024-10-21 01:34 | Emergency (ER) | payer OTHER ==
[2024-10-21 01:43] VITALS: TEMP 98.9
[2024-10-21] MEDS: KETOROLAC 15 MG/ML 1 ML VIAL IM STA (02:32)
--- NOTE | 2024-10-21 03:01 | ED ---
ENT HPI - General Chief complaint: Dental/Oral Stated complaint: Oral Pain Time Seen by Provider: 10/21/24 01:54 Source: patient, RN notes reviewed Mode of arrival: ambulatory - History of Present Illness Initial comments: 24-year-old female presenting for dental pain. Patient states she has an extensive history of pain in the left lower molar and has had multiple ER visits for this. States 1.5 weeks ago her dentist attempted a tooth extraction but was unsuccessful. She referred patient to an oral surgeon however patient has not been able to due to financial issues. States she took a course of Augmentin 1 month ago and clindamycin 1 week ago. Denies fever, chills, trismus, tongue/lip swelling. She is able to swallow. - Related Data Home Medications Medication Instructions Recorded Confirmed Amoxic-Pot Clav 875-125Mg 1 tab PO DAILY 09/20/24 09/20/24 [Augmentin 875-125] Previous Rx's Medication Instructions Recorded Acetaminophen Tab [Tylenol Tab] 500 mg PO Q6H PRN #30 tablet 10/21/24 Ketorolac [Toradol] 10 mg PO Q8HR #15 tab 10/21/24 Allergies Allergy/AdvReac Type Severity Reaction Status Date / Time No Known Allergies Allergy Verified 10/21/24 01:43 Review of Systems ROS Statement: Those systems with pertinent positive or pertinent negative responses have been documented in the HPI. ROS Other: All systems not noted in ROS Statement are negative. Past Medical History Past Medical History: No Reported History History of Any Multi-Drug Resistant Organisms: None Reported Past Surgical History: No Surgical Hx Reported Past Psychological History: ADD/ADHD, Anxiety, PTSD Smoking Status: Current every day smoker, Vaper Past Alcohol Use History: Occasional Past Drug Use History: Marijuana General Exam General appearance: alert, in no apparent distress Head exam: Present: atraumatic, normocephalic, normal inspection Eye exam: Present: normal appearance, PERRL, EOMI. Absent: scleral icterus, conjunctival injection, periorbital swelling ENT exam: Present: mucous membranes moist, other (Diffuse dental caries with fractured left lower molar. No erythema or fluctuant masses, no drainage.) Neck exam: Present: normal inspection. Absent: tenderness, meningismus, lymphadenopathy Respiratory exam: Present: normal lung sounds bilaterally. Absent: respiratory distress, wheezes, rales, rhonchi, stridor Cardiovascular Exam: Present: regular rate, normal rhythm, normal heart sounds. Absent: systolic murmur, diastolic murmur, rubs, gallop, clicks Neurological exam: Present: alert, oriented X3 Psychiatric exam: Present: normal affect, normal mood Skin exam: Present: warm, dry, intact, normal color. Absent: rash Course Vital Signs 10/21/24 10/21/24 01:39 03:08 Temperature 98.9 F Pulse Rate 104 H 60 Respiratory 18 16 Rate Blood Pressure 113/75 92/58 O2 Sat by Pulse 98 97 Oximetry Medical Decision Making - Medical Decision Making Was pt. sent in by a medical professional or institution (, PA, ORTHOTIC FINISH GRINDING TECHNICIAN, urgent care, hospital, or fci...) When possible be specific @ -No Did you speak to anyone other than the patient for history (EMS, parent, family, police, friend...)? What history was obtained from this source @ -No Did you review nursing and triage notes (agree or disagree)? Why? @ -I reviewed and agree with nursing and triage notes Were old charts reviewed (outside hosp., previous admission, EMS record, old EKG, old radiological studies, urgent care reports/EKG's, fci records)? Report findings @ -No old charts were reviewed Differential Diagnosis (chest pain, altered mental status, abdominal pain women, abdominal pain men, vaginal bleeding, weakness, fever, dyspnea, syncope, headache, dizziness, GI bleed, back pain, seizure, CVA, palpatations, mental health, musculoskeletal)? @ -Dental abscess, dental infection, toothache, gingivitis, Charles's angina, trismus EKG interpreted by me (3pts min.). @ -None X-rays interpreted by me (1pt min.). @ -None done CT interpreted by me (1pt min.). @ -None done U/S interpreted by me (1pt. min.). @ -None done What testing was considered but not performed or refused? (CT, X-rays, U/S, labs)? Why? @ -None What meds were considered but not given or refused? Why? @ -None Did you discuss the management of the patient with other professionals (professionals i.e. , PA, ORTHOTIC FINISH GRINDING TECHNICIAN, lab, RT, psych nurse, health social work professor, site monitor, teacher, second officer, correctional case manager)? Give summary @ -No Was smoking cessation discussed for >3mins.? @ -No Was critical care preformed (if so, how long)? @ -No Were there social determinants of health that impacted care today? How? (Homelessness, low income, unemployed, alcoholism, drug addiction, transportation, low edu. Level, literacy, decrease access to med. care, snf, rehab)? @ -No Was there de-escalation of care discussed even if they declined (Discuss DNR or withdrawal of care, Hospice)? DNR status @ -No What co-morbidities impacted this encounter? (DM, HTN, Smoking, COPD, CAD, Cancer, CVA, ARF, Chemo, Hep., AIDS, mental health diagnosis, sleep apnea, morbid obesity)? @ -None Was patient admitted / discharged? Hospital course, mention meds given and route, prescriptions, significant lab abnormalities, going to OR and other pertinent info. @ -Discharge. This is a 24-year-old female presenting for dental pain. Patient has had multiple ER visits for this and has been on multiple courses of antibiotics. Patient is able to swallow. No red flag symptoms such as trismus, lip/tongue swelling, fever. Examination reveals diffuse dental caries with fractured left lower molar. No sign of bacterial infection on examination. Patient was provided with dose of Toradol for pain control. Discussed with patient that as pain is chronic in nature and no acute sign of bacterial infection, we will treat pain today however patient must follow-up with oral surgeon as discussed. Patient is agreeable to this plan. Appropriate return precautions and follow-up care discussed. Case was discussed with the ED attending Dr. Manjarrez. Undiagnosed new problem with uncertain prognosis? @ -No Drug Therapy requiring intensive monitoring for toxicity (Heparin, Nitro, Insulin, Cardizem)? @ -No Were any procedures done? @ -No Diagnosis/symptom? @ -Dental pain Acute, or Chronic, or Acute on Chronic? @ -Acute Uncomplicated (without systemic symptoms) or Complicated (systemic symptoms)? @ -Uncomplicated Side effects of treatment? @ -No Exacerbation, Progression, or Severe Exacerbation? @ -No Poses a threat to life or bodily function? How? (Chest pain, [place], [place], pneumonia, PE, COPD, DKA, ARF, appy, cholecystitis, CVA, Diverticulitis, Homicidal, Suicidal, threat to staff... and all critical care pts) @ -No Disposition Clinical Impression: Pain, dental Disposition: HOME SELF-CARE Condition: Stable Instructions (If sedation given, give patient instructions): Toothache (ED) Additional Instructions: Take Tylenol and Toradol as needed for pain. Follow-up with oral surgeon. Please return to the Emergency Department if symptoms worsen or any other concerns. Prescriptions: Ketorolac [Toradol] 10 mg PO Q8HR #15 tab Acetaminophen Tab [Tylenol Tab] 500 mg PO Q6H PRN #30 tablet PRN Reason: Pain Is patient prescribed a controlled substance at d/c from ED?: No Referrals: Jimmy Almonte MD [Primary Care Provider] - 1-2 days Time of Disposition: 03:01
[2024-10-21 03:29] VITALS: BP 92/58; PULSE 60; RESP 16
== END 2024-10-21 03:08 | disposition home or self-care (01) ==
LOC: EC 01:34
DX: K02.9 Dental caries, unspecified (principal); K03.81 Cracked tooth; F17.290 Nicotine dependence, other tobacco product, uncomplicated
CPT/HCPCS: 99283; 96372; J1885